=== PATIENT | female | born 1975 | race Caucasian/White ===

== ENCOUNTER 2022-03-05 14:38 | Outpatient (CLI) | payer SELFPAY | END 2022-03-05 14:39 | disposition home or self-care (01) | LOC: AMB 03-14 11:05 | PROVIDERS: PCP Family Medicine; Visit Provider Family Medicine | DX: R42 Dizziness and giddiness (principal); R26.9 Unspecified abnormalities of gait and mobility | CPT/HCPCS: A0425; A0427 ==

== ENCOUNTER 2022-03-05 15:20 | Emergency (ER) | payer SELFPAY ==
[2022-03-05 15:23] VITALS: BP 140/81; PULSE 124; PULSE 134; RESP 32; TEMP 37.1; O2SAT 92; BMI 33.4
[2022-03-05 16:10] VITALS: BP 144/98; PULSE 125; PULSE 94; RESP 26; O2SAT 95
--- NOTE | 2022-03-05 16:21 | ED.NURSE ---
Per MD, cancel UA order. Call to lab for cancel.
--- NOTE | 2022-03-05 16:25 | ED.NURSE ---
Pt denies need for timber trimmer at this time. Pt verbalizes understanding that at any time, iPad timber trimmer can be used. Pt signs form declining professional timber trimmer. Brother at bedside.
--- NOTE | 2022-03-05 16:29 | CRLHL7_ITS ---
For Patients: As a result of the Century Cures Act, medical imaging exams and procedure reports are released immediately into your electronic medical record. You may view this report before your referring provider. If you have questions, please contact your health care provider. INDICATION: Dyspnea COMPARISON: None TECHNIQUE: Single-view study as in AP portable exam FINDINGS: TUBES AND LINES: None. HEART AND MEDIASTINUM: The heart size is normal. The mediastinal contour appears normal for patient age. LUNGS AND PLEURAL SPACES: Given poor inspiratory effort, the lungs appear to be clear.The pleural spaces are unremarkable. OSSEOUS STRUCTURES: Age-appropriate appearance. No acute focal finding. IMPRESSION: No evidence of active pulmonary disease. Dictated by Yousuf Chan MD @ 03/05/2022 5:14:38 PM (Electronically Signed)
[2022-03-05 16:34] LABS: Amphetamine Screen Urine Negative (Negative); Barbiturate Screen Urine Negative (Negative); Benzodiazepines Screen Urine Negative (Negative); Cannabinoid Screen Urine Negative (Negative); Cocaine Screen Urine Negative (Negative); Methadone Screen Urine Negative (Negative); Methamphetamines Screen Urine Negative (Negative); Opiate Screen Urine Negative (Negative); Oxycodone Screen Urine Negative (Negative); Phencyclidine Screen Urine Negative (Negative); Tricyclic Antidepressant Urine Negative (Negative)
--- NOTE | 2022-03-05 16:52 | ED.NURSE ---
Dosage double check with ALEXUS Wolf: Ativan 0.5 mg IVP.
[2022-03-05 16:56] LABS: Basophils Absolute Auto 0.02 K/uL (0.00-0.30); Basophils Percent Auto 0.3 % (0.0-3.0); Eosinophils Percent Auto 1.5 % (0.0-7.0); Hematocrit 40.7 % (33.0-51.0); Immature Granulocytes Abs Auto 0.08 K/uL (0.00-0.30); Lymphocytes Absolute Auto 1.93 K/uL (0.90-2.90); Lymphocytes Percent Auto 28.3 % (20-44); Mean Corpuscular HGB Conc 34 gm/dL (32-36); Mean Corpuscular Hemoglobin 33 pg (26-34); Mean Corpuscular Volume 95 fL (80-100); Monocytes Percent Auto 5.4 % (0.0-11.0); Neutrophils Absolute Auto 4.33 K/uL (1.7-7.0); Neutrophils Percent Auto 63.3 % (42.0-72.0); Platelet Count* 291 K/uL (140-440); RDW Coefficient of Variation % 12.7 % (11.5-15.5); Red Blood Count 4.27 m/uL (4.00-5.20); White Blood Count* 6.83 K/uL (4.50-11.00)
[2022-03-05] MEDS: LORazepam 2 MG/ML inj 0.5 MG IVP (16:56)
[2022-03-05 17:03] VITALS: BP 165/94; PULSE 125; RESP 20; O2SAT 93
[2022-03-05 17:12] LABS: Albumin* 4.5 g/dL (3.3-5.0); Chloride* 110 mmol/L (96-114); Potassium* 3.7 mmol/L (3.6-5.1); Sodium* 144 mmol/L (135-149)
[2022-03-05 17:14] LABS: Bilirubin Direct* 0.5 mg/dL (0.0-0.5); Bilirubin Total* 0.5 mg/dL (0.1-1.5); Carbon Dioxide* 22 mmol/L (20-32); Creatinine* 0.5 mg/dL (0.5-1.5); Est. Creatinine Clearance* 99.91; Estimated Glomerular Filt Rate 116.34; Total Protein* 7.7 g/dL (6.0-8.3)
[2022-03-05 17:15] LABS: Alanine Aminotransferase* 68 U/L (4-35); Alkaline Phosphatase* 99 U/L (40-150); Aspartate Amino Transferase* 103 U/L (12-35); Blood Urea Nitrogen* 8 mg/dL (5-24); Calcium* 8.6 mg/dL (8.4-10.6); Glucose* 148 mg/dL (60-115)
[2022-03-05 17:19] LABS: D Dimer Quantitative* 0.27 ug/ml (0.00-0.50)
[2022-03-05 17:19] LABS: C Reactive Protein* 1.7 mg/dL (0.5-1.0)
[2022-03-05 17:27] LABS: Troponin I* < 0.01 ng/mL (0.01-0.04)
[2022-03-05 17:30] VITALS: BP 147/95; PULSE 124; RESP 24; O2SAT 92
[2022-03-05 17:47] LABS: SARS PCR* Negative SARS-CoV-2 (Negative)
--- NOTE | 2022-03-05 17:48 | ED.NURSE ---
Pt requesting to leave prior to results. aware. iPad produce shipper in room to translate. Pt verbalizes understanding that she will be leaving ER against medical advice and signs form. Pt leaves ER ambulatory with all belongings, accompanied by brother.
[2022-03-05 18:04] LABS: Ethanol* 0.34 % (0.01-0.03)
--- NOTE | 2022-03-05 18:05 | ED.NURSE ---
Critical result received from lab: ETOH 0.34. aware.
[2022-03-05 23:13] LABS: HCG Qualitative* Negative (Negative)
[2022-03-06 05:26] LABS: Slide Review Reflex No
--- NOTE | 2022-03-06 14:50 | ED_ITS ---
HPI - General Adult General Chief complaint: Dizziness/Vertigo Stated complaint: Dizziness Time Seen by Provider: 03/05/22 16:04 Source: patient and family Mode of arrival: ambulatory Limitations: language barrier and altered mental status History of Present Illness HPI narrative: This 46-year-old woman presenting to the emergency department with a number of complaints. Visit is conducted by myself in Arabic assisted by family, brother significant other-this is unclear to me, as well as fire suppression captain. Information gathering is extremely challenging. Family notes how when Ms. Dixon gets upset pressures go up and gets dizzy. Trying to clarify whether not were talking about dizziness or lightheadedness ultimately is a little unclear though they seem to be acknowledging both. Ms. Dixon says yesterday she was feeling dizzy and lightheaded and then her blood pressure went down. At 1 point family notes ?it is a little anxiety?. Then Ms. Dixon says ?it's like everything? over and over. She does say that she has rapid heart rate sometimes. She denies a history of dysrhythmia and never had any monitoring. She does after some questioning endorse a primary care provider I believe in the form Dr. Bruner heard though acknowledges that it has been a long time since she has been seen by them. My review of records here in the care of this patient shows I believe 2014 last visit and this was related to obstetrical Care. She does acknowledge now that she is better ?I just want to go see my son? although this does not seem to mean that she wants to leave immediately acknowledging that we should do some workup. I note her to be breathing rapidly and maybe shallowly but she says she is not short of air. She has no chest pain. Family says that she is mentating and breathing normally. Answers to questions are brief and confusing and generally simply agreeable. Denies any fevers recently. No visual disturbance. No headaches. It is not clear to me that there was an acute event today. She did have some symptoms yesterday and today apparently was still feeling unwell though now so she is better. No loss of sensation or focal weakness. Denies significant past medical. Medications-none but Tylenol for whatever or headache Related Data Allergies Allergy/AdvReac Type Severity Reaction Status Date / Time No Known Drug Allergies Allergy Verified 03/05/22 15:53 Review of Systems Status of ROS: Reports: 10 or more systems reviewed and unremarkable except as noted in History and below [facility] Medical History (Updated 03/06/22 @ 15:12 by Mike Hood MD) No significant past medical history Surgical History (Updated 03/06/22 @ 14:59 by Mike Hood MD) No significant past surgical history Social History Smoking Status: Never smoker Do you use any of these nicotine containing products: None Second hand tobacco smoke exposure: No How often do you have a drink containing alcohol: never How often do you have six or more drinks on one occasion: Never AUDIT-C Alcohol total score: 0 Non-prescribed substance use: denies use service: No Exam Narrative: Exam Narrative: Ms. Dixon is pleasant. Tachypneic and somewhat breathless. Unfocused. Appropriately casually groomed though a little disheveled is evidenced by matting of hair at the posterior scalp. Neuro-there is slight amblyopia of the left eye possibly --not inconsistent with prior surgery. Otherwise cranial nerves 2-12 to be intact. Moving all extremities smoothly with good strength. No loss of sensation appreciated. HEENT-missing a number of teeth. Mouth is moist. Head atraumatic. Neck/back-neck is supple. Back nontender. No indication of trauma. Lungs-clear equal expansion excursion. Participates unusually with exam in oddly timed respiratory efforts CV-tachycardic. Regular rhythm. Abdomen-soft nontender. No masses appreciated. Extremities-as above. No edema. Well perfused peripherally. Const: Vital Signs, click to edit/add: Vital Signs - 24 hr 03/05/22 15:23 03/05/22 16:10 03/05/22 17:03 Temperature 98.8 F Pulse Rate [Apical ] 134 H 125 H Pulse Rate [Pulse Oximeter] 124 H 94 125 H Respiratory Rate 32 H 26 H 20 Blood Pressure [Ri ght Upper Arm] 140/81 H 144/98 H 165/94 H Pulse Oximetry 92 95 93 03/05/22 17:30 Temperature Pulse Rate [Apical ] Pulse Rate [Pulse Oximeter] 124 H Respiratory Rate 24 Blood Pressure [Ri ght Upper Arm] 147/95 H Pulse Oximetry 92 Course Course Hospital Course: During time in the emergency department Ms. Dixon did request departure a number of times. She was not held but was encouraged to remain for finishing workup. She did appear to desire that although he eventually departed with family prior to completion of workup. Was monitored on cook candy during time in the ER. She had at 1 point begun removing monitors and dressing to leave. A generally was redirectable until AMA departure. Was at 1 point due to question of anxiety driving some of these symptoms, given a dose of lorazepam. Did not seem to change much. Labs as below were essentially normal. Transaminases are elevated consistent with the originally missed ETOH level. Things became much more clear once alcohol level was resulted at 0.34. I would note that Ms. Dixon was easily ambulatory speaking fluidly albeit with confusing communication at this alcohol level. Prior to resulting alcohol level, I did need Ms. Dixon and family in the lobby when I realized that they had departed AMA, admonished to follow up this next week in primary care to review his tachycardia. I think though again this is likely explained in the end by alcohol intoxication. Vital Signs Vital signs: Initial Vital Signs Temperature 98.8 F 03/05/22 15:23 Temperature Source Temporal Artery Scan 03/05/22 15:23 Pulse Rate 134 H 03/05/22 15:23 Pulse Rhythm 03/05/22 15:23 Respiratory Rate 32 H 03/05/22 15:23 Blood Pressure 140/81 H 03/05/22 15:23 Blood Pressure Mean 100 03/05/22 15:23 Blood Pressure Position Supine 03/05/22 15:23 Pulse Oximetry 92 03/05/22 15:23 Oxygen Delivery Method 03/05/22 15:23 Vital Signs Temperature 98.8 F 03/05/22 15:23 Pulse Rate 134 H 03/05/22 15:23 Respiratory Rate 32 H 03/05/22 15:23 Blood Pressure 140/81 H 03/05/22 15:23 Pulse Oximetry 92 03/05/22 15:23 Temperature 98.8 F 03/05/22 15:23 Pulse Rate 124 H 03/05/22 17:30 Respiratory Rate 24 03/05/22 17:30 Blood Pressure 147/95 H 03/05/22 17:30 Pulse Oximetry 92 03/05/22 17:30 Medical Decision Making MDM Narrative Medical decision making narrative: EKG reviewed by me shows sinus tachycardia at rate of 137 Chest x-ray reviewed by me one view, I thought perhaps some cardiomegaly though admittedly this is a one view portable. Radiology read is normal. Again initially confusing picture. Labs ultimately consistent with alcohol intoxication. Further I think this is driving all the symptoms here today and altered mental status. Differential Diagnosis Differential Diagnosis: Tachyarrhythmia, anxiety, substance ingestion, pneumonia, pulmonary embolus Medical Records Medical records reviewed: Yes I reviewed the patient's medical records Lab Data Lab results reviewed: Yes I reviewed the patient's lab results Labs: Lab Results 03/05/22 03/05/22 03/05/22 Range/Units 16:00 16:00 16:00 WBC (4.50-11.00) K/uL RBC (4.00-5.20) m/uL Hgb (12.0-16.0) gm/dL Hct (33.0-51.0) % MCV (80-100) fL MCH (26-34) pg MCHC (32-36) gm/dL RDW Coeff of Kendall (11.5-15.5) % Plt Count (140-440) K/uL Neut % (Auto) (42.0-72.0) % Lymph % (Auto) (20-44) % [place] % (Auto) (0.0-11.0) % Eos % (Auto) (0.0-7.0) % Baso % (Auto) (0.0-3.0) % Neut # (Auto) (1.7-7.0) K/uL Lymph # (Auto) (0.90-2.90) K/uL [place] # (Auto) (0.00-0.90) K/UL Eos # (Auto) (0.00-0.50) K/uL Baso # (Auto) (0.00-0.30) K/uL Abs Immat Gran (auto) (0.00-0.30) K/uL D-Dimer Quant (PE/DVT) (0.00-0.50) ug/ml Sodium (135-149) mmol/L Potassium (3.6-5.1) mmol/L Chloride (96-114) mmol/L Carbon Dioxide (20-32) mmol/L BUN (5-24) mg/dL Creatinine (0.5-1.5) mg/dL Estimated Creat Clear Glucose (60-115) mg/dL Calcium (8.4-10.6) mg/dL Total Bilirubin (0.1-1.5) mg/dL Direct Bilirubin (0.0-0.5) mg/dL AST (12-35) U/L ALT (4-35) U/L Alkaline Phosphatase (40-150) U/L Ammonia (13.1-30.0) umol/L Troponin I (0.01-0.04) ng/mL C-Reactive Protein (0.5-1.0) mg/dL Total Protein (6.0-8.3) g/dL Albumin (3.3-5.0) g/dL HCG, Qual Negative (Negative) Urine Color Cancelled Urine Appearance Cancelled Urine pH Cancelled Ur Specific Harvey Cancelled Urine Protein Cancelled Urine Glucose (UA) Cancelled Urine Ketones Cancelled Urine Blood Cancelled Urine Nitrite Cancelled Urine Bilirubin Cancelled Urine Urobilinogen Cancelled Ur Leukocyte Esterase Cancelled Urine Opiates Screen Negative (Negative) Ur Oxycodone Screen Negative (Negative) Urine Methadone Screen Negative (Negative) Ur Propoxyphene Screen Negative (Negative) Ur Barbiturates Screen Negative (Negative) U Tricyclic Antidepress Negative (Negative) Ur Phencyclidine Scrn Negative (Negative) Ur Amphetamines Screen Negative (Negative) U Methamphetamines Scrn Negative (Negative) U Benzodiazepines Scrn Negative (Negative) Urine Cocaine Screen Negative (Negative) U Marijuana (THC) Screen Negative (Negative) Ur Drug Screen Comment See Note Ethyl Alcohol (0.01-0.03) % SARS-CoV-2 (PCR) (Negative) POC Troponin I (0.01-0.04) ng/ml 03/05/22 03/05/22 03/05/22 Range/Units 16:35 16:39 16:44 WBC 6.83 (4.50-11.00) K/uL RBC 4.27 (4.00-5.20) m/uL Hgb 14.0 (12.0-16.0) gm/dL Hct 40.7 (33.0-51.0) % MCV 95 (80-100) fL MCH 33 (26-34) pg MCHC 34 (32-36) gm/dL RDW Coeff of Kendall 12.7 (11.5-15.5) % Plt Count 291 (140-440) K/uL Neut % (Auto) 63.3 (42.0-72.0) % Lymph % (Auto) 28.3 (20-44) % [place] % (Auto) 5.4 (0.0-11.0) % Eos % (Auto) 1.5 (0.0-7.0) % Baso % (Auto) 0.3 (0.0-3.0) % Neut # (Auto) 4.33 (1.7-7.0) K/uL Lymph # (Auto) 1.93 (0.90-2.90) K/uL [place] # (Auto) 0.40 (0.00-0.90) K/UL Eos # (Auto) 0.10 (0.00-0.50) K/uL Baso # (Auto) 0.02 (0.00-0.30) K/uL Abs Immat Gran (auto) 0.08 (0.00-0.30) K/uL D-Dimer Quant (PE/DVT) (0.00-0.50) ug/ml Sodium (135-149) mmol/L Potassium (3.6-5.1) mmol/L Chloride (96-114) mmol/L Carbon Dioxide (20-32) mmol/L BUN (5-24) mg/dL Creatinine (0.5-1.5) mg/dL Estimated Creat Clear Glucose (60-115) mg/dL Calcium (8.4-10.6) mg/dL Total Bilirubin (0.1-1.5) mg/dL Direct Bilirubin (0.0-0.5) mg/dL AST (12-35) U/L ALT (4-35) U/L Alkaline Phosphatase (40-150) U/L Ammonia (13.1-30.0) umol/L Troponin I (0.01-0.04) ng/mL C-Reactive Protein 1.7 H (0.5-1.0) mg/dL Total Protein (6.0-8.3) g/dL Albumin (3.3-5.0) g/dL HCG, Qual (Negative) Urine Color Urine Appearance Urine pH Ur Specific Harvey Urine Protein Urine Glucose (UA) Urine Ketones Urine Blood Urine Nitrite Urine Bilirubin Urine Urobilinogen Ur Leukocyte Esterase Urine Opiates Screen (Negative) Ur Oxycodone Screen (Negative) Urine Methadone Screen (Negative) Ur Propoxyphene Screen (Negative) Ur Barbiturates Screen (Negative) U Tricyclic Antidepress (Negative) Ur Phencyclidine Scrn (Negative) Ur Amphetamines Screen (Negative) U Methamphetamines Scrn (Negative) U Benzodiazepines Scrn (Negative) Urine Cocaine Screen (Negative) U Marijuana (THC) Screen (Negative) Ur Drug Screen Comment Ethyl Alcohol (0.01-0.03) % SARS-CoV-2 (PCR) Negative SARS-CoV-2 (Negative) POC Troponin I (0.01-0.04) ng/ml 03/05/22 03/05/22 03/05/22 Range/Units 16:44 16:44 16:44 WBC (4.50-11.00) K/uL RBC (4.00-5.20) m/uL Hgb (12.0-16.0) gm/dL Hct (33.0-51.0) % MCV (80-100) fL MCH (26-34) pg MCHC (32-36) gm/dL RDW Coeff of Kendall (11.5-15.5) % Plt Count (140-440) K/uL Neut % (Auto) (42.0-72.0) % Lymph % (Auto) (20-44) % [place] % (Auto) (0.0-11.0) % Eos % (Auto) (0.0-7.0) % Baso % (Auto) (0.0-3.0) % Neut # (Auto) (1.7-7.0) K/uL Lymph # (Auto) (0.90-2.90) K/uL [place] # (Auto) (0.00-0.90) K/UL Eos # (Auto) (0.00-0.50) K/uL Baso # (Auto) (0.00-0.30) K/uL Abs Immat Gran (auto) (0.00-0.30) K/uL D-Dimer Quant (PE/DVT) 0.27 (0.00-0.50) ug/ml Sodium 144 (135-149) mmol/L Potassium 3.7 (3.6-5.1) mmol/L Chloride 110 (96-114) mmol/L Carbon Dioxide 22 (20-32) mmol/L BUN 8 (5-24) mg/dL Creatinine 0.5 (0.5-1.5) mg/dL Estimated Creat Clear 99.91 Glucose 148 H (60-115) mg/dL Calcium 8.6 (8.4-10.6) mg/dL Total Bilirubin 0.5 (0.1-1.5) mg/dL Direct Bilirubin 0.5 (0.0-0.5) mg/dL AST 103 H (12-35) U/L ALT 68 H (4-35) U/L Alkaline Phosphatase 99 (40-150) U/L Ammonia 15.0 (13.1-30.0) umol/L Troponin I < 0.01 L (0.01-0.04) ng/mL C-Reactive Protein (0.5-1.0) mg/dL Total Protein 7.7 (6.0-8.3) g/dL Albumin 4.5 (3.3-5.0) g/dL HCG, Qual (Negative) Urine Color Urine Appearance Urine pH Ur Specific Harvey Urine Protein Urine Glucose (UA) Urine Ketones Urine Blood Urine Nitrite Urine Bilirubin Urine Urobilinogen Ur Leukocyte Esterase Urine Opiates Screen (Negative) Ur Oxycodone Screen (Negative) Urine Methadone Screen (Negative) Ur Propoxyphene Screen (Negative) Ur Barbiturates Screen (Negative) U Tricyclic Antidepress (Negative) Ur Phencyclidine Scrn (Negative) Ur Amphetamines Screen (Negative) U Methamphetamines Scrn (Negative) U Benzodiazepines Scrn (Negative) Urine Cocaine Screen (Negative) U Marijuana (THC) Screen (Negative) Ur Drug Screen Comment Ethyl Alcohol 0.34 H* (0.01-0.03) % SARS-CoV-2 (PCR) (Negative) POC Troponin I 0.00 L (0.01-0.04) ng/ml Imaging Data Chest x-ray: Attestation: I have reviewed the pertinent imaging results. My impression: See above ECG Data Attestation: I personally reviewed and interpreted this ECG as follows: Interpretation: See above Discharge Plan Discharge Clinical Impression: Anxiety, Tachycardia, Alcohol intoxication in active alcoholic Patient Disposition: Left Against Medical Advice Additional Instructions: Please follow-up with your doctor this next week Follow Up/Referrals: Olivia Gooden, [Primary Care Provider] - Stand Alone Forms: MyHealth Info Instructions
== END 2022-03-05 18:00 | disposition left against medical advice (07) ==
LOC: ED 17:56
PROVIDERS: Emergency Provider Family Medicine; PCP Family Medicine
DX: F10.129 Alcohol abuse with intoxication, unspecified (principal); F41.9 Anxiety disorder, unspecified
CPT/HCPCS: 36415; 71045; 80048; 80076; 80306; 81003; 82077; 82140; 84484; 84703; 85025; 85379; 86140; 87635; 93005; 99283; 99284; 99285; J2060

== ENCOUNTER 2023-11-29 10:19 | Outpatient (CLI) | payer OTHER, SELFPAY | END 2023-11-29 10:20 | disposition home or self-care (01) | LOC: AMB 12-07 23:34 | PROVIDERS: PCP Family Medicine; Visit Provider Emergency Medicine Emergency Medical Services | DX: R41.82 Altered mental status, unspecified (principal) | CPT/HCPCS: A0425; A0429 ==

== ENCOUNTER 2023-11-29 11:07 | Emergency (ER) | payer OTHER, SELFPAY ==
[2023-11-29 11:20] VITALS: BP 127/80; PULSE 95; RESP 18; TEMP 36.4; O2SAT 95; BMI 27.4
--- NOTE | 2023-11-29 12:08 | ED.NURSE ---
Patient is erratic and not following basic instructions. She is unsteady on her feet and requires a sitter for her safety.
--- NOTE | 2023-11-29 12:25 | ED.GENADULT ---
HPI - General Adult General Chief complaint: Alcohol/Intoxication Stated complaint: altered mental status Time Seen by Provider: 11/29/23 11:33 History of Present Illness HPI narrative: This 48-year-old female comes in because a family member was concerned about her mental health. She speaks Welsh only and porcelain enameling supervisor services are used. The patient had a tragic loss about a week ago when a nephew at age 2 from a choking incident. She states that she has episodes of anger and sadness related to this. She denies using any street drugs or alcohol. She apparently does have a history of alcohol abuse. She does not appear to be intoxicated. She denies any intentions to harm herself or others. She states that she is grieving over the recent loss. Related Data Allergies Allergy/AdvReac Type Severity Reaction Status Date / Time No Known Drug Allergies Allergy Verified 03/05/22 15:53 Review of Systems Status of ROS: Reports: 10 or more systems reviewed and unremarkable except as noted in History and below Narrative: Constitutional: No fevers, no weight gain or loss. Eyes: No discharge. No vision changes. HENT: No congestion, no sore throat, no ear pain. Cardiovascular: No chest pain, no palpitations. Respiratory: No shortness of breath, no wheezes, no cough. Gastrointestinal: No abdominal pain, no vomiting, no diarrhea. Genitourinary: No dysuria, no hematuria. Musculoskeletal: Normal range of motion. Skin: No rashes, no pruritis. Neurological: No dizziness, weakness, sensory change, speech change. Endo/Heme/Allergies: No bruising or bleeding. No polydipsia. Pysch: no suicidality, no anxiety, no insomnia. Grieving the loss of a nephew that occurred last week. All other systems reviewed and are negative. [facility] Medical History (Updated 11/29/23 @ 14:18 by Nick Cortes MD) No significant past medical history Surgical History (Updated 03/06/22 @ 14:59 by Mike Hood MD) No significant past surgical history Social History Smoking Status: Never smoker Do you use any of these nicotine containing products: None Second hand tobacco smoke exposure: No How often do you have a drink containing alcohol: never How often do you have six or more drinks on one occasion: Never AUDIT-C Alcohol total score: 0 Non-prescribed substance use: denies use service: No Exam Narrative: Exam Narrative: Constitutional: Well-developed, well-nourished, no acute distress. HEENT: Normocephalic, atraumatic. Neck: Normal range of motion. Nontender. Supple. Heart: Regular. No murmurs. Normal rate. Intact distal pulses. Lungs: Clear to auscultation. No chest discomfort. No wheezes, rhonchi, or rales. Abdomen: Normal bowel sounds. Nontender. No rebound tenderness. Genitalia: Deferred. Back: No midline tenderness. Normal range of motion. Extremities: Normal range of motion. No injury. Skin: Intact. No rash. Warm. No erythema or pallor. Neurologic: No altered sensation. No weakness. Alert and oriented. Psychiatric: No suicidality. No anxiety or depression. No insomnia. Patient is pleasant and cooperative. Nursing notes and vitals signs are reviewed. Const: Vital Signs, click to edit/add: Vital Signs - 24 hr 11/29/23 11:20 Temperature 97.6 F Pulse Rate [Pulse Oximeter] 95 Respiratory Rate 18 [facility] 127/80 Pulse Oximetry 95 Course Vital Signs Vital signs: Initial Vital Signs Temperature 97.6 F 11/29/23 11:20 Temperature Source Temporal Artery Scan 11/29/23 11:20 Pulse Rate 95 11/29/23 11:20 Respiratory Rate 18 11/29/23 11:20 Blood Pressure 127/80 11/29/23 11:20 Blood Pressure Mean 95 11/29/23 11:20 Pulse Oximetry 95 11/29/23 11:20 Vital Signs Temperature 97.6 F 11/29/23 11:20 Pulse Rate 95 11/29/23 11:20 Respiratory Rate 18 11/29/23 11:20 Blood Pressure 127/80 11/29/23 11:20 Pulse Oximetry 95 11/29/23 11:20 Temperature 97.6 F 11/29/23 11:20 Pulse Rate 95 11/29/23 11:20 Respiratory Rate 18 11/29/23 11:20 Blood Pressure 127/80 11/29/23 11:20 Pulse Oximetry 95 11/29/23 11:20 Medical Decision Making MDM Narrative Medical decision making narrative: This patient comes in for evaluation but does not really describe what her complaints are. She is essentially grieving over the of the 2-year-old nephew that happened last week. She does have a history of alcohol abuse. Family members are contacted also regarding these matters. She denies using any street drugs or alcohol but her alcohol level returns at 0.29. Urine drug screen is negative. The patient's brother is present and willing to take her home. She is not showing any signs of intent to harm herself or others. Lab Data Labs: Lab Results 11/29/23 11/29/23 Range/Units 13:15 Unknown Urine Opiates Screen Negative (Negative) Ur Oxycodone Screen Negative (Negative) Urine Methadone Screen Negative (Negative) Ur Barbiturates Screen Negative (Negative) U Tricyclic Antidepress Negative (Negative) Ur Phencyclidine Scrn Negative (Negative) Ur Amphetamines Screen Negative (Negative) U Methamphetamines Scrn Negative (Negative) U Benzodiazepines Scrn Negative (Negative) Urine Cocaine Screen Negative (Negative) U Marijuana (THC) Screen Negative (Negative) Ur Drug Screen Comment See Note Ethyl Alcohol 0.29 H (0.01-0.03) % Discharge Plan Discharge Clinical Impression: Alcoholic intoxication Patient Disposition: Home w/ Parent or Adult Condition: Unchanged Additional Instructions: Follow up with MD as needed. Avoid alcohol. Return if worsening symptoms happen. Follow Up/Referrals: Olivia Gooden DO [Primary Care Provider] - Stand Alone Forms: [employer] Info Instructions
[2023-11-29 13:34] LABS: Amphetamine Screen Urine Negative (Negative); Barbiturate Screen Urine Negative (Negative); Benzodiazepines Screen Urine Negative (Negative); Cannabinoid Screen Urine Negative (Negative); Cocaine Screen Urine Negative (Negative); Methadone Screen Urine Negative (Negative); Methamphetamines Screen Urine Negative (Negative); Opiate Screen Urine Negative (Negative); Oxycodone Screen Urine Negative (Negative); Phencyclidine Screen Urine Negative (Negative); Tricyclic Antidepressant Urine Negative (Negative)
[2023-11-29 13:52] LABS: Ethanol* 0.29 % (0.01-0.03)
== END 2023-11-29 15:54 | disposition home or self-care (01) ==
PROVIDERS: Emergency Provider Emergency Medicine Emergency Medical Services; PCP Family Medicine
DX: F10.129 Alcohol abuse with intoxication, unspecified (principal)
CPT/HCPCS: 36415; 80306; 82077; 99283; 99284; T1013

== ENCOUNTER 2024-01-23 09:29 | Emergency (ER) | payer OTHER, SELFPAY ==
[2024-01-23 09:36] VITALS: BP 160/87; PULSE 81; RESP 18; TEMP 36.2; O2SAT 98; BMI 28.3
--- NOTE | 2024-01-23 10:20 | ED_ITS ---
HPI - Animal Bite General Date Seen: 01/23/24 Chief Complaint: Animal Bite Stated Complaint: dog bite Time Seen by Provider: 01/23/24 09:34 Source: patient and ui developer designer (Armenian) Mode of arrival: ambulatory Limitations: no limitations History of Present Illness HPI narrative: Patient is a 48-year-old female presenting to emergency department after the bit by a dog. It was a dog the belonged to someone who had the same apartment complex as her friend. The laundrette owner of the dog states the dog is vaccinated for rabies but he did not have the paperwork at the time. This occurred last night. She was bit in the right buttocks. The dog has been otherwise acting normally. A police report has been filed. No other concerns noted at the time. She is here to check if she needs any antibiotics or rabies vaccine. She states she was just waiting by the front door of the convenience store next door when the dog bit her. Related Data Previous Rx's Medication Instructions Recorded amoxicillin 875 mg-potassium 1 tab PO BID #10 tabs 01/23/24 clavulanate 125 mg tablet Allergies Allergy/AdvReac Type Severity Reaction Status Date / Time No Known Drug Allergies Allergy Verified 01/23/24 09:47 Review of Systems Narrative: Pertinent systems reviewed and were negative unless stated per HPI [facility] Medical History No significant past medical history Surgical History No significant past surgical history Social History Smoking Status: Never smoker Do you use any of these nicotine containing products: None Second hand tobacco smoke exposure: No How often do you have a drink containing alcohol: never How often do you have six or more drinks on one occasion: Never AUDIT-C Alcohol total score: 0 Non-prescribed substance use: denies use service: No Exam Narrative: Exam Narrative: Const: Well-nourished, Well-developed, in No distress Eyes: PERRL, no conjunctival injection, and symmetrical lids HENT: Atraumatic external nose and ears. Moist mucous membranes. MSK:Extremities w/o deformity, Normal Active ROM Skin: Warm, Dry. Bruising with 2 puncture wounds noted to right buttocks Neuro: Normal Muscle tone, No focal neurological deficits. Psych: Awake, Alert, & Oriented x3. Appropriate mood and affect. Const: Vital Signs, click to edit/add: Vital Signs - 24 hr 01/23/24 09:36 Temperature 97.1 F L Pulse Rate [Right Pulse Oximeter] 81 Respiratory Rate 18 Blood Pressure [Ri ght Upper Arm] 160/87 H Pulse Oximetry 98 Oxygen Delivery Me thod Room Air Course Vital Signs Vital signs: Initial Vital Signs Temperature 97.1 F L 01/23/24 09:36 Temperature Source Temporal Artery Scan 01/23/24 09:36 Pulse Rate 81 01/23/24 09:36 Pulse Rhythm Regular 01/23/24 09:36 Respiratory Rate 18 01/23/24 09:36 Blood Pressure 160/87 H 01/23/24 09:36 Blood Pressure Mean 111 H 01/23/24 09:36 Blood Pressure Position Sitting 01/23/24 09:36 Pulse Oximetry 98 01/23/24 09:36 Oxygen Delivery Method Room Air 01/23/24 09:36 Vital Signs Temperature 97.1 F L 01/23/24 09:36 Pulse Rate 81 01/23/24 09:36 Respiratory Rate 18 01/23/24 09:36 Blood Pressure 160/87 H 01/23/24 09:36 Pulse Oximetry 98 01/23/24 09:36 Oxygen Delivery Method Room Air 01/23/24 09:36 Temperature 97.1 F L 01/23/24 09:36 Pulse Rate 81 01/23/24 09:36 Respiratory Rate 18 01/23/24 09:36 Blood Pressure 160/87 H 01/23/24 09:36 Pulse Oximetry 98 01/23/24 09:36 Oxygen Delivery Method Room Air 01/23/24 09:36 MDM - Animal Bite MDM Narrative Medical decision making narrative: Patient is a 48-year-old female presenting to the emergency department after a dog bite. She was wondering if she needs the rabies vaccine. Considering a police report has already been filed in the dog kidney monitored for 10 days she does not require rabies vaccines at this time. I informed her that in the dog does show signs of rabies She would likely need the vaccinations later. I will starting antibiotics for the prophylactics from the dog bite. She is agreeable to this plan. Do not believe I need any x-rays at this time. Discharge Plan Discharge Clinical Impression: Dog bite Qualifiers: Encounter type: initial encounter Qualified Code(s): W54.0XXA - Bitten by dog, initial encounter Patient Disposition: Home, Self-Care Condition: Stable Instructions: Animal Bite (ED) Additional Instructions: Make sure the dog is monitored for 10 days and if It develops any signs of rabies you will likely then need rabies vaccinations. Take the antibiotics as directed Prescriptions: New amoxicillin-pot clavulanate 875-125 mg tablet 1 tab PO BID Qty: 10 0RF Follow Up/Referrals: Olivia Gooden DO [Primary Care Provider] - Stand Alone Forms: [employer] Info Instructions
== END 2024-01-23 10:36 | disposition home or self-care (01) ==
LOC: ED 10:34
PROVIDERS: Emergency Provider Student in an Organized Health Care Education/Training Program; PCP Family Medicine
DX: S31.815A Open bite of right buttock, initial encounter (principal); W54.0XXA Bitten by dog, initial encounter
CPT/HCPCS: 99282; 99283